=== PATIENT | female | born 1985 | race Asian ===

== ENCOUNTER 2019-08-22 20:46 | Emergency (ER) | payer OTHER ==
[~2019-08-22] VITALS: Ht 170.2 cm; Wt 145.2 kg
[2019-08-23 00:05] VITALS: BP 130/88; TEMP 98
== END 2019-08-23 00:05 | disposition home or self-care (01) ==
LOC: ED 20:46
DX: F41.1 Generalized anxiety disorder (principal); R00.0 Tachycardia, unspecified
CPT/HCPCS: 81025; 82962; 93005; 96372; 99283; J2060

== ENCOUNTER 2021-07-30 17:27 | Emergency (ER) | payer OTHER ==
[~2021-07-30] VITALS: Ht 170.2 cm; Wt 113.4 kg
[2021-07-30 19:15] VITALS: BP 124/76; TEMP 98.1
== END 2021-07-30 19:20 | disposition home or self-care (01) ==
LOC: ED 17:27
DX: M54.2 Cervicalgia (principal); V49.9XXA Car occupant (driver) (passenger) injured in unspecified traffic accident, initial encounter; Y92.89 Other specified places as the place of occurrence of the external cause
CPT/HCPCS: 99283

== ENCOUNTER 2021-10-28 09:08 | Outpatient (CLI) | payer BC | END 2021-10-28 18:59 | disposition home or self-care (01) | LOC: RAD 09:08 | PROVIDERS: ATTEND Internal Medicine | DX: M79.672 Pain in left foot (principal); M25.572 Pain in left ankle and joints of left foot ==